=== PATIENT | female | born 1990 | race Caucasian/White ===

== ENCOUNTER 2018-03-18 13:32 | Observation (INO) | payer OTHER ==
[2018-03-18 15:01] LABS: #Lymphocytes 1.4 thou/uL (1.20-3.40); #Monocytes 0.5 thou/uL (0.11-0.59); #Neutrophils 8.5 thou/uL (1.40-6.50); %Basophils 0.5 % (0.0-1.0); %Eosinophils 0.3 % (0.0-10.0); %Lymphocytes 13.4 % (21.0-51.0); %Monocytes 5.1 % (0.0-10.0); %Neutrophils 80.8 % (42.0-75.0); Hemoglobin 11.9 g/dL (12.0-16.0); Mean Corpuscular HGB CONC 35.2 g/dL (32.0-36.0); Mean Corpuscular Hemoglobin 31.2 pg (27.0-31.0); Mean Corpuscular Volume 88.5 fL (78.0-98.0); Mean Platelet Volume 7.1 fL (7.4-10.4); Platelet Count 278 thou/uL (130-400); RBC Distribution Width 11.5 % (11.5-14.5); Red Blood Cell (RBC) Count 3.82 mill/uL (4.20-5.40); White Blood Cell (WBC) Count 10.5 thou/uL (4.8-10.8)
[2018-03-18] MEDS ORDERED: Ondansetron PF 4 MG/2 ML Vial ONE (15:05)
[2018-03-18 15:22] LABS: ALT (SGPT) 15 U/L (8-55); AST (SGOT) 15 U/L (5-34); Albumin 3.6 g/dL (3.5-5.0); Alkaline Phosphatase 65 U/L (40-150); Anion Gap 12 mmol/L (10-20); BUN (Urea Nitrogen) 4 mg/dL (7.0-18.7); Bilirubin, Total 0.4 mg/dL (0.2-1.2); Calc. Creatinine Clearance 0 mL/min (70-130); Calcium 9.1 mg/dL (7.8-10.44); Carbon Dioxide 21 mmol/L (22-29); Chloride 106 mmol/L (98-107); Estimated GFR-MDRD Greater than 90; Globulin 2.8 g/dL (2.4-3.5); Glucose 92 mg/dL (70-105); Potassium 3.4 mmol/L (3.5-5.1); Protein, Total 6.4 g/dL (6.0-8.3); Sodium 136 mmol/L (136-145)
--- NOTE | 2018-03-18 15:46 | CT ---
CT BRAIN NONCONTRAST: HISTORY: A 27-year-old female with posttraumatic headache after a fall. FINDINGS: There is no midline shift or any other mass effect. There is no evidence of acute intracranial hemor rhage, large cortical infarct, obstructive hydrocephalus, or extraaxial fluid collection. The calvar ium is intact. There is focal superficial soft tissue contusion at the left upper parietal scalp. IMPRESSION: 1. No acute intracranial findings. 2. Acute, traumatic left upper parietal scalp contusion. jn [] POS: AINSLEY
[2018-03-18 15:57] LABS: Bilirubin Negative (Negative); Blood, Urine Negative (Negative); Clarity CLOUDY (Clear); Glucose, Urine (Dipstick) Negative (Negative); Leukocyte Trace (Negative); Nitrite Negative (Negative); Protein, Urine (Dipstick) Negative (Neg-Trace); Specific Gravity, Urine 1.013 (1.002-1.036)
[2018-03-18 15:58] LABS: Bacteria/HPF 4+ HPF (None Seen); Pathc Cast-AUWi Flag 0.43 (0-2.49); RBC/HPF 0-3 HPF (0-3)
[2018-03-18] MEDS ORDERED: diphenhydrAMINE 50 MG/ML VIAL ONE (16:05)
[2018-03-18] MEDS ORDERED: Metoclopramide HCl 10 MG/2 ML VIAL ONE (16:05)
[2018-03-18 16:13] LABS: Hyaline Casts/LPF NONE SEEN LPF (0-3 Hyaline); Other Casts/LPF None Seen LPF (0-3 Hyaline)
[2018-03-18] MEDS ORDERED: Ondansetron PF 4 MG/2 ML Vial IVP PRN (18:07)
[2018-03-18] MEDS: Sodium Chloride 0.9% 1,000 ML IV SCH (18:25)
[2018-03-18] MEDS ORDERED: Acetaminophen 650 MG Suppository PR PRN (20:47)
[2018-03-18] MEDS: Nitrofurantoin Monohyd/M-Cryst 100 MG CAP PO SCH (20:48)
[2018-03-18] MEDS: Acetaminophen 325 MG TAB PO PRN (20:58)
--- NOTE | 2018-03-18 21:25 | HP ---
CHIEF COMPLAINT: Syncopal episode followed by vomiting. She had a syncopal episode, sustained head injury followed by positional vertigo and vomiting. HISTORY OF PRESENT ILLNESS AND REVIEW OF SYSTEMS: Ms. Rae is a pleasant 27-year-old woman who is 17 weeks ( 3, para 2), who presents following a syncopal episode while at work at approximately 12:00 p.m. The patient states she had an episode of vomiting this morning at 9:00 a.m., which is not typical for her as her morning sickness has resolved for some time now. She went to work and states she began to feel lightheaded while standing. She felt generally unwell and before she knew it, she collapsed backwards hitting the back of her head on the ground. She denies having any associated chest pain or shortness of breath. Denies having any headaches. She has been experiencing vomiting since then. However, this since occurs whenever she turns and looks towards the left side. The patient describes a vertigo like sensation immediately followed by vomiting. As long as she is lying flat, looking straight or lying onto her right side, she feels well. The minute she looks or turns to her left side, the symptoms recur. She denies having any blurred vision. No recent fevers, chills, or sweats. Denies any abdominal pain or cramping. She has not had any urinary symptoms such as dysuria, hematuria. She denies having any changes with her bowels. All other review of systems are negative. PAST MEDICAL HISTORY: Unremarkable. PAST SURGICAL HISTORY: None. SOCIAL HISTORY: The patient currently smokes 4 cigarettes a day. Denies any alcohol use or illicit drug use. ALLERGIES: NO KNOWN DRUG ALLERGIES. CURRENT MEDICATIONS: vitamins. PHYSICAL EXAMINATION: GENERAL: The patient appears well developed, well nourished, and in no acute distress. VITAL SIGNS: Temperature 98.5, pulse 78, respirations 16, O2 saturation 95% on room air, BP 109/77. HEENT: The patient has a small hematoma on the left occipital region. Pupils are equal, round, reactive to light. Sclerae are without icterus. Extraocular movements normal. No nystagmus present. Oropharynx is clear. NECK: Supple. CARDIAC: Regular rate and rhythm. LUNGS: Clear to auscultation bilaterally. No chest wall tenderness. ABDOMEN: Soft, nontender, nondistended. Normoactive bowel sounds present. No guarding or rigidity. EXTREMITIES: No clubbing, cyanosis, or edema. Full range of motion and normal strength in all extremities. NEUROLOGIC: Alert and oriented x3. Facial movements normal. Speech normal. No visual disturbances. Difficulty assessing for ataxic gait as patient unable to sit up without vertigo-like symptoms causing vomiting. Once again no nystagmus noted on exam. LABORATORY DATA: White blood count 10.5, hemoglobin 11.9, hematocrit 33.8, platelets 278. Sodium 136, potassium mildly low at 3.4, BUN 4, creatinine 0.58. LFTs unremarkable. GFR greater than 90. UA notable for cloudy appearance with a pH of seven, ketones present (40). Trace leukocyte esterase, 11-20 white blood cells, 7-10 squamous epithelial cells, 4+ urine bacteria. Likely contaminated sample; however, there is the presence of ketones. IMAGING DATA: CT brain, 03/18/2018. No acute intracranial findings. Acute traumatic left upper parietal scalp contusion. IMPRESSION AND PLAN: Ms. Rae is a 27-year-old woman presenting with a syncopal episode followed by persistent positional vertigo and vomiting. She is being admitted to the observation unit for the following management. 1. Syncopal episode. The patient has undergone a CT of the head that is negative. Continue to monitor. May consider further imaging with an MRI of the brain. 2. Vertigo with vomiting. The patient has received ondansetron, possibly associated with concussion. Continue to monitor. Further assessment of gait once vomiting settles. 3. Urinary tract infection. Urinalysis notable for 40 of ketones. Also, bacteria and white blood cells, said to be foul in odor as per RN. Antibiotic therapy started with nitrofurantoin. 4. A 17 weeks gestation. Consultation placed with AL[facility]INUM SHINGLE ROOFER for review and further input. 5. Gastrointestinal prophylaxis. 6. Venous thromboembolism prophylaxis. Mechanical sequential compression devices. 7. The patient's case was discussed with Dr. Cevallos who agrees with plan of care as described above. Job ID: [id number]
[2018-03-19] MEDS: Acetaminophen 325 MG TAB PO PRN ×3 (01:59→10:21)
[2018-03-19 05:51] LABS: #Eosinphils 0.1 thou/uL (0.0-0.7); #Lymphocytes 2.4 thou/uL (1.20-3.40); #Monocytes 0.8 thou/uL (0.11-0.59); #Neutrophils 4.8 thou/uL (1.40-6.50); %Basophils 0.5 % (0.0-1.0); %Eosinophils 0.8 % (0.0-10.0); %Lymphocytes 30.1 % (21.0-51.0); %Monocytes 9.3 % (0.0-10.0); %Neutrophils 59.3 % (42.0-75.0); Hemoglobin 10.5 g/dL (12.0-16.0); Mean Corpuscular HGB CONC 34.5 g/dL (32.0-36.0); Mean Corpuscular Hemoglobin 30.9 pg (27.0-31.0); Mean Corpuscular Volume 89.6 fL (78.0-98.0); Mean Platelet Volume 7.4 fL (7.4-10.4); Platelet Count 256 thou/uL (130-400); RBC Distribution Width 11.5 % (11.5-14.5); White Blood Cell (WBC) Count 8.1 thou/uL (4.8-10.8)
[2018-03-19 06:16] LABS: Anion Gap 9 mmol/L (10-20); BUN (Urea Nitrogen) 5 mg/dL (7.0-18.7); Calc. Creatinine Clearance 167 mL/min (70-130); Calcium 8.6 mg/dL (7.8-10.44); Carbon Dioxide 21 mmol/L (22-29); Chloride 110 mmol/L (98-107); Estimated GFR-MDRD Greater than 90; Glucose 93 mg/dL (70-105); Potassium 3.6 mmol/L (3.5-5.1); Sodium 136 mmol/L (136-145)
[2018-03-19] MEDS ORDERED: Ondansetron PF 4 MG/2 ML Vial IVP PRN (08:54)
[2018-03-19] MEDS ORDERED: Ondansetron ODT 4 MG TAB PO PRN (08:54)
[2018-03-19] MEDS ORDERED: Prenatal Vitamin 1 TAB PO SCH (09:00)
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
[2018-03-19] MEDS: Sodium Chloride 0.9% 1,000 ML IV SCH (10:21)
[2018-03-19] MEDS: Nitrofurantoin Monohyd/M-Cryst 100 MG CAP PO SCH (10:21)
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
[2018-03-19] MEDS ORDERED: Acetaminophen/Codeine 30-300mg Tablet PO PRN (14:17)
[2018-03-19 14:43] VITALS: BMI 27.8
--- NOTE | 2018-03-19 15:40 | ULT ---
OBSTETRIC SONOGRAM: History: 3rd trimester gestation. evaluation. FINDINGS: Multiple transabdominal sonographic views of a gravid uterus show a single intrauterine gestation in cephalic presentation. Cervical is closed and 6.0 cm. Grade 0 placenta is posterior. Amniotic fluid i s within normal limits. No gross intracranial abnormalities. Four chamber heart shows motion at 143 b eats/minute. Umbilical cord shows a normal insertion. Measurements are as follows: BPH 17 weeks 2 days HC 17 weeks 3 days AC 17 weeks 4 days FL 17 weeks 0 days Estimated date of delivery based on today's sonogram is 19. [place] 10 percentile. IMPRESSION: Single viable intrauterine gestation with estimated gestation age based on today's sonogram of 17 wee ks 2 days. No significant abnormalities are demonstrated. POS: AINSLEY
[2018-03-19 16:14] VITALS: TEMP 98
--- NOTE | 2018-03-19 18:22 | DIS ---
DATE OF ADMISSION: 03/18/2018 DATE OF DISCHARGE: 03/19/2018 DISCHARGE DISPOSITION: Home. FOLLOWUP: 1. Follow up with primary care physician in 1 week. 2. Follow up with ARMATURE VARNISHER, Dr. Chad Persaud, in 1 week. 3. Follow up with Dr. Gan, neurologist, in 1 week. ALLERGIES: NO KNOWN DRUG ALLERGIES. DISCHARGE MEDICATION: Macrobid 100 mg twice daily for next 9 days. The patient was seen and examined on the day of discharge. Dizziness and vertigo are slowly improving. Headache has somewhat improved. INPATIENT MOTORS AND GENERATORS INSPECTOR: 1. ARMATURE VARNISHER Service. 2. Neurology Service. TEST PENDING AT DISCHARGE: Urine culture and sensitivities. Presumptive cultures were positive for E. coli. SIGNIFICANT LABORATORY DATA: Potassium on admission 3.4, this morning was 3.6. WBC 10.5 with hemoglobin 11.9, hematocrit 33.8, and platelets 278. CT scan of the brain was negative for acute intracranial findings. There was acute traumatic left upper parietal scalp contusion. BRIEF HOSPITAL COURSE: The patient is a 27-year-old female, who is 17 weeks , presented to the emergency room with syncopal episode. She had significant nausea and vomiting prior to syncope. She had a closed head injury. Please refer to the history and physical for further details. The patient was admitted to the hospital with a diagnosis of syncope. Her EKG showed sinus rhythm. She was started on IV fluids. Nausea and vomiting were controlled with Zofran. Her workup was also consistent with UTI, for which she was started on Macrobid. She underwent a ultrasound that showed a single viable intrauterine gestation with estimated gestation age approximately 17 weeks and 2 days. No significant abnormalities were noted. The patient was evaluated by Neurology, Dr. Gan. Headache improved with Tylenol No. 3, that was started by Neurology Service. She was advised to follow up with outpatient dizziness and balance program. Fall precaution was emphasized. PLAN: Plan of care was discussed with the patient and the family at the bedside, they stated understanding. FINAL DIAGNOSES: 1. Vasovagal syncope. 2. Dehydration due to persistent nausea and vomiting. 3. Ongoing tobacco abuse. The patient was counseled. 4. Closed head injury with left upper parietal scalp contusion. 5. History of migraines in the past. 6. Seventeen weeks . 7. Hypokalemia, replaced. 8. Escherichia coli urinary tract infection. 9. Chronic anemia. 10. Plan of care was discussed with the patient and the family at the bedside, they stated understanding. Job ID: [id number]
--- NOTE | 2018-03-20 00:01 | CON ---
DATE OF CONSULTATION: 03/19/2018 CONSULTING PHYSICIAN: Hospitalist Service. IMPRESSION: 1. Mild concussion with secondary benign positional vertigo. 2. History of migraine. 3. Currently . PLAN: 1. Tylenol with Codeine as needed for pain. 2. Referral to the [facility]. HISTORY OF PRESENT ILLNESS: Ms. Rae is a 27-year-old white female with a past history of migraines and . She was standing when she started to feel lightheaded and fainted. She fell backward and hit her head on the ground. She awoke relatively soon after the fall, she noted pain on the back of her head where she struck the pavement. She came into the hospital to be evaluated. She had a CT of the brain done, which did not show any intracranial abnormalities, but did show her area of swelling from the injury. Since the injury, she reports that she was having primarily left-sided headache. She tried [id number] medications with no success. She was given a Tylenol with Codeine earlier today, which reduced the intensity of the headache to at least 50%. The pain is mostly holocephalic at this point. There is no associated nausea or vomiting. She notes that if only when she turns her head to the left she can elicit vertigo; if only she turns her body en bloc it does not elicit it. She has no new mood changes, complaints of memory difficulties or irritability since the injury. There is no history of concussion. PAST HISTORY: Migraine. SOCIAL HISTORY: No tobacco, alcohol use. FAMILY HISTORY: Noncontributory. ALLERGIES: NONE REPORTED. MEDICATIONS: vitamins. REVIEW OF SYSTEMS: 10-system review of systems is otherwise negative. PHYSICAL EXAMINATION: GENERAL: She is a healthy-appearing young woman, lying in bed, in no distress. VITAL SIGNS: Stable. She is afebrile. HEENT: There is some swelling in the occipital region. Pupils are equal and reactive. Conjunctiva clear. NECK: Supple. No lymphadenopathy. EXTREMITIES: No cyanosis, clubbing, or edema. NEUROLOGIC: She is alert and appropriate. Her speech is fluent and clear. Exam is nonfocal. SUMMARY: This is a young woman with a minor head injury with secondary headache and positional vertigo. I suspect that she will improve with a bit of time. We can try to address the vertigo as an outpatient. Job ID: [id number]
[2018-03-20 10:13] VITALS: BP 104/56
== END 2018-03-19 18:30 | disposition home or self-care (01) ==
LOC: ERS 13:32 → 2SW 16:34 → INTOOBSV 03-19 14:27 → OBSVTOIN 03-19 14:27
PROVIDERS: ADMIT Internal Medicine; ATTEND Internal Medicine
DX: O9A.212 Injury, poisoning and certain other consequences of external causes complicating pregnancy, second trimester (principal); S00.03XA Contusion of scalp, initial encounter; O99.332 Smoking (tobacco) complicating pregnancy, second trimester; F17.210 Nicotine dependence, cigarettes, uncomplicated; O23.42 Unspecified infection of urinary tract in pregnancy, second trimester; B96.20 Unspecified Escherichia coli [E. coli] as the cause of diseases classified elsewhere; O99.89 Other specified diseases and conditions complicating pregnancy, childbirth and the puerperium; G43.909 Migraine, unspecified, not intractable, without status migrainosus; E86.0 Dehydration; E87.6 Hypokalemia; O99.012 Anemia complicating pregnancy, second trimester; Z3A.17 17 weeks gestation of pregnancy; Z79.2 Long term (current) use of antibiotics; W01.198A Fall on same level from slipping, tripping and stumbling with subsequent striking against other object, initial encounter
CPT/HCPCS: 36415; 70450; 76805; 80048; 80053; 81003; 81015; 85025; 87077; 87086; 87186; 93005; 96361; 96365; 96375; 96376; G0378; J1200; J2405; J2765

== ENCOUNTER 2018-07-22 18:26 | Day surgery (SDC) | payer OTHER ==
[2018-07-22 19:02] VITALS: BMI 31.3
--- NOTE | 2018-07-23 11:34 | SS ---
DATE OF ADMISSION: 07/22/2018 DATE OF DISCHARGE: 07/22/2018 REGULAR PHYSICIAN: Maryam Persaud MD EVALUATING PHYSICIAN: David Maradiaga MD CHIEF COMPLAINT: Spotting with decreased movement at home. HISTORY OF PRESENT ILLNESS: Ms. Rae is a 27-year-old white -0-0-2 with an estimated date of confinement of 08/20/2018, who presents complaining of 2 episodes of light spotting at home with reported decreased movement since this morning. She denies ruptured membranes or heavy vaginal bleeding. She has felt that her baby move more since she has been here in Labor and Delivery. Her care has been with Dr. Persaud and has been without complications. PAST OBSTETRICAL HISTORY: Two vaginal deliveries at term, reportedly uncomplicated. PAST MEDICAL HISTORY: None. PAST SURGICAL HISTORY: None. CURRENT MEDICATIONS: vitamins. ALLERGIES: NO KNOWN ALLERGIES. SOCIAL HISTORY: Denies tobacco, alcohol, or drug use. FAMILY HISTORY: Unremarkable. REVIEW OF SYSTEMS: Denies nausea, vomiting, fever, chills, ruptured membranes, or vaginal bleeding. PHYSICAL EXAMINATION: VITAL SIGNS: In triage; her vital signs are stable and she is afebrile. GENERAL: She is pleasant and in no distress. ABDOMEN: Soft, nontender, and gravid. PELVIC: Examination shows the external os to be 1 to 2 cm dilated. The internal os is closed. The cervix is thick. The vertex appears to present. heart rate tracing is stable with spontaneous accelerations and good [id number] variability. Only an irregular contraction is seen. ASSESSMENT: 1. 36-week intrauterine . 2. Reassuring testing here in Labor and Delivery tonight. PLAN: The patient will be discharged to home. She was given labor precautions. Dr. Persaud was notified of her evaluation. Job ID: [id number]
== END 2018-07-22 20:30 | disposition home health service (06) ==
LOC: L&D/OP 18:26
PROVIDERS: ATTEND Obstetrics & Gynecology
DX: O26.853 Spotting complicating pregnancy, third trimester (principal); O36.8130 Decreased fetal movements, third trimester, not applicable or unspecified; Z3A.36 36 weeks gestation of pregnancy; Z79.899 Other long term (current) drug therapy
CPT/HCPCS: 99282

== ENCOUNTER 2018-08-17 15:16 | Inpatient (IN) | payer OTHER ==
[2018-08-17] MEDS ORDERED: Diphenoxylate HCl/Atropine Tablet PO PRN ×2 (19:22)
[2018-08-17] MEDS ORDERED: Docusate 100 MG CAP PO PRN (19:22)
[2018-08-17] MEDS ORDERED: Lidocaine 1% (PF) 30 ML VIAL SC PRN (19:22)
[2018-08-17] MEDS ORDERED: NS / Oxytocin 40 units/1000ml 1,000 ML IV PRN (19:22)
[2018-08-17] MEDS ORDERED: Zolpidem Tartrate 5 MG TAB PO PRN (19:22)
[2018-08-17] MEDS ORDERED: HYDROcodone/Acetaminophen 5/325 mg Tablet PO PRN ×2 (19:22)
[2018-08-17] MEDS ORDERED: Ibuprofen 800 MG TAB PO PRN (19:22)
[2018-08-17] MEDS ORDERED: hydrALAZINE 20 MG/ML VIAL SLOW IVP PRN (19:22)
[2018-08-17] MEDS ORDERED: NS w/ Oxytocin 10 units 500 ML IV SCH ×2 (19:22)
[2018-08-17] MEDS ORDERED: Ondansetron PF 4 MG/2 ML Vial IVP PRN (19:22)
[2018-08-17] MEDS ORDERED: Misoprostol 200 MCG TAB PR PRN (19:22)
[2018-08-17] MEDS ORDERED: Butorphanol Tartrate 1 MG/ML VIAL SLOW IVP PRN (19:22)
[2018-08-17] MEDS ORDERED: Promethazine HCl 25 MG/ML VIAL IM PRN (19:22)
[2018-08-17] MEDS ORDERED: Acetaminophen 500 MG TAB PO PRN (19:22)
[2018-08-17] MEDS: Lactated Ringer's 1,000 ML IV SCH (21:53)
[2018-08-17] MEDS: Misoprostol 100 MCG TAB VAG SCH (21:53)
[2018-08-17 22:11] LABS: Hemoglobin 10.6 g/dL (12.0-16.0); Mean Corpuscular HGB CONC 34.1 g/dL (32.0-36.0); Mean Corpuscular Hemoglobin 29.3 pg (27.0-31.0); Mean Corpuscular Volume 86.1 fL (78.0-98.0); Mean Platelet Volume 7.9 fL (7.4-10.4); Platelet Count 255 thou/uL (130-400); RBC Distribution Width 12.7 % (11.5-14.5); Red Blood Cell (RBC) Count 3.62 mill/uL (4.20-5.40)
[2018-08-17 22:47] LABS: Syphilis Antibody Nonreactive (Nonreactive); Syphilis Antibody Index 0.02 S/CO (<1.00 Non-Reactive)
[2018-08-17 23:25] LABS: HBSAg Index 0.27 S/CO (0-0.99); Hep B Surf Ag Non-Reactive S/CO (NonReactive)
[2018-08-18 00:14] VITALS: BMI 32.8
[2018-08-18] MEDS: Misoprostol 100 MCG TAB VAG SCH ×2 (01:23→05:04)
[2018-08-18] MEDS: Lactated Ringer's 1,000 ML IV SCH (03:29)
[2018-08-18] MEDS ORDERED: Fentanyl 4 mcg/Bup 0.1% Cadd 100 ML ONE (03:29)
[2018-08-18] MEDS ORDERED: Ondansetron PF 4 MG/2 ML Vial IVP PRN ×2 (05:11→08:12)
[2018-08-18] MEDS ORDERED: ePHEDrine/0.9% NaCl/PF SYRINGE 50 mg/10 ml SLOW IVP PRN (05:11)
[2018-08-18] MEDS ORDERED: diphenhydrAMINE 50 MG/ML VIAL IVP PRN (05:11)
[2018-08-18] MEDS ORDERED: Lactated Ringer's 500 ML IV PRN (05:11)
[2018-08-18] MEDS ORDERED: Acetaminophen 325 MG TAB PO PRN (05:11)
[2018-08-18] MEDS ORDERED: Promethazine HCl 25 MG/ML VIAL IM PRN (05:11)
[2018-08-18] MEDS ORDERED: Naloxone HCl 0.4 mg/ml Vial IVP PRN ×2 (05:11)
[2018-08-18] MEDS ORDERED: Fentanyl 4 mcg/Bupivacaine 0.1% Cassette 100 ML EPIDURAL SCH (05:15)
[2018-08-18] MEDS ORDERED: Communication Order-Pharmacy FS SCH (05:15)
[2018-08-18] MEDS ORDERED: Adacel (T-DAP) 0.5 ML SYRINGE IM ONE (08:12)
[2018-08-18] MEDS ORDERED: Bisacodyl 10 MG SUPP PR PRN (08:12)
[2018-08-18] MEDS ORDERED: Preparation H Ointment 28 GM TUBE PR PRN (08:12)
[2018-08-18] MEDS ORDERED: hydrALAZINE 20 MG/ML VIAL SLOW IVP PRN (08:12)
[2018-08-18] MEDS ORDERED: Misoprostol 200 MCG TAB VAG PRN (08:12)
[2018-08-18] MEDS ORDERED: Benzocaine-Menthol 82.5 ML CAN TOP PRN (08:12)
[2018-08-18] MEDS ORDERED: Milk Of Magnesia 30 ML UDCUP PO PRN (08:12)
[2018-08-18] MEDS ORDERED: Lanolin Ointment 7 GM TUBE TOP PRN (08:12)
[2018-08-18] MEDS ORDERED: Acetaminophen/Codeine 30-300mg Tablet PO PRN (08:12)
[2018-08-18] MEDS ORDERED: Zolpidem Tartrate 5 MG TAB PO PRN (08:12)
[2018-08-18] MEDS ORDERED: diphenhydrAMINE 25 MG CAP PO PRN (08:12)
[2018-08-18] MEDS ORDERED: NS / Oxytocin 40 units/1000ml 1,000 ML IV SCH (08:15)
[2018-08-18] MEDS: Docusate Calcium (SURFAK) 240 MG CAP PO SCH ×2 (13:02→20:35)
[2018-08-18] MEDS: Prenatal Vitamin 1 TAB PO SCH (13:02)
[2018-08-18] MEDS: Ibuprofen 800 MG TAB PO SCH ×2 (13:15→20:35)
[2018-08-18] MEDS: Ferrous Sulfate 325 MG TAB PO SCH (16:21)
[2018-08-18] MEDS ORDERED: Bupivacaine/Epinephrine 0.25% 30 ML VIAL ONE (18:00)
[2018-08-19] MEDS: Acetaminophen/Codeine 30-300mg Tablet PO PRN ×2 (03:44→10:47)
[2018-08-19] MEDS: Ibuprofen 800 MG TAB PO SCH ×2 (03:45→13:28)
[2018-08-19] MEDS: Ferrous Sulfate 325 MG TAB PO SCH (07:46)
[2018-08-19] MEDS: Misoprostol 100 MCG TAB VAG SCH ×2 (07:48→07:49)
[2018-08-19] MEDS: Lactated Ringer's 1,000 ML IV SCH (07:49)
[2018-08-19] MEDS: Docusate Calcium (SURFAK) 240 MG CAP PO SCH (08:29)
[2018-08-19] MEDS: Prenatal Vitamin 1 TAB PO SCH (08:29)
[2018-08-19 08:51] VITALS: BP 106/70; TEMP 97.8
[2018-10-18] MEDS ORDERED: Bupivacaine/Epinephrine 0.25% 30 ML VIAL ONE (09:00)
== END 2018-08-19 13:55 | disposition home or self-care (01) | DRG 807 ==
LOC: L&D 18:59 → 3SW 08-18 10:47
PROVIDERS: ADMIT Obstetrics & Gynecology; ATTEND Obstetrics & Gynecology
PROC: 10E0XZZ Delivery of Products of Conception, External Approach (ICD-10-PCS; principal; 2018-08-17)
PROC: 3E033VJ Introduction of Other Hormone into Peripheral Vein, Percutaneous Approach (ICD-10-PCS; 2018-08-17)
DX: O99.02 Anemia complicating childbirth (principal); Z37.0 Single live birth; Z3A.39 39 weeks gestation of pregnancy; D64.9 Anemia, unspecified
CPT/HCPCS: 36415; 51702; 85027; 86780; 86850; 86900; 86901; 87340; 90715; J2405

== ENCOUNTER 2018-11-22 13:15 | Emergency (ER) | payer OTHER, SELFPAY ==
[2018-11-22] MEDS ORDERED: Lidocaine 1% (PF) 30 ML VIAL ONE (13:32)
[2018-11-22] MEDS ORDERED: Triple Antibiotic Oint 1 GM Packet ONE (13:48)
== END 2018-11-22 13:50 | disposition home or self-care (01) ==
LOC: ERS 13:15
DX: S61.305A Unspecified open wound of left ring finger with damage to nail, initial encounter (principal); F17.210 Nicotine dependence, cigarettes, uncomplicated; W26.9XXA Contact with unspecified sharp object(s), initial encounter
CPT/HCPCS: 11750; J2001